=== PATIENT | female | born 2000 | race Caucasian/White ===

== ENCOUNTER 2020-03-09 11:24 | Outpatient (CLI) | payer OTHER | END 2020-03-09 11:25 | disposition home or self-care (01) | LOC: BUREKG 11:24 | PROVIDERS: ATTEND Physician Assistant | DX: R00.0 Tachycardia, unspecified (principal) | CPT/HCPCS: 93005; 93010 ==

== ENCOUNTER 2020-07-13 20:19 | Emergency (ER) | payer OTHER ==
[2020-07-13] MEDS ORDERED: Clindamycin 150 MG CAP ONE (20:46)
== END 2020-07-13 20:49 | disposition home or self-care (01) ==
LOC: BURERS 20:19
DX: L02.416 Cutaneous abscess of left lower limb (principal); F17.210 Nicotine dependence, cigarettes, uncomplicated
CPT/HCPCS: 99283

== ENCOUNTER 2020-12-02 18:33 | Emergency (ER) | payer OTHER ==
[2020-12-02 19:28] LABS: #Basophils 0.1 thou/uL (0.0-0.2); #Eosinphils 0.3 thou/uL (0.0-0.7); #Lymphocytes 3.6 thou/uL (1.20-3.40); #Monocytes 0.7 thou/uL (0.11-0.59); #Neutrophils 4.6 thou/uL (1.40-6.50); %Basophils 0.6 % (0.0-1.0); %Eosinophils 3.2 % (0.0-10.0); %Lymphocytes 39.3 % (28.0-48.0); %Monocytes 7.6 % (0.0-4.0); %Neutrophils 49.3 % (31.0-61.0); Mean Corpuscular HGB CONC 33.8 g/dL (32.0-36.0); Mean Corpuscular Hemoglobin 30.6 pg (25.0-35.0); Mean Corpuscular Volume 90.6 fL (78.0-98.0); Mean Platelet Volume 6.1 fL (7.4-10.4); Platelet Count 298 thou/uL (130-400); RBC Distribution Width 10.4 % (11.5-14.5); Red Blood Cell (RBC) Count 4.89 mill/uL (4.00-5.20); White Blood Cell (WBC) Count 9.2 thou/uL (4.8-10.8)
[2020-12-02 19:44] LABS: ALT (SGPT) 23 U/L (8-55); AST (SGOT) 15 U/L (5-34); Albumin 4.6 g/dL (3.5-5.0); Alkaline Phosphatase 80 U/L (40-100); Anion Gap 15 mmol/L (10-20); BUN (Urea Nitrogen) 14 mg/dL (7.0-18.7); Bilirubin, Total 0.2 mg/dL (0.2-1.2); Calc. Creatinine Clearance 0 mL/min (70-130); Calcium 10.1 mg/dL (7.8-10.44); Carbon Dioxide 27 mmol/L (22-29); Chloride 103 mmol/L (98-107); Globulin 3.1 g/dL (2.4-3.5); Glucose 94 mg/dL (70-105); Potassium 3.9 mmol/L (3.5-5.1); Protein, Total 7.7 g/dL (6.0-8.3); Sodium 141 mmol/L (136-145)
== END 2020-12-02 20:11 | disposition home or self-care (01) ==
LOC: BURERS 18:33
DX: R07.89 Other chest pain (principal); F17.210 Nicotine dependence, cigarettes, uncomplicated
CPT/HCPCS: 36415; 71045; 80053; 84484; 85025; 93005

== ENCOUNTER 2021-01-23 21:53 | Emergency (ER) | payer OTHER ==
[2021-01-23] MEDS ORDERED: HYDROcodone/Acetaminophen 5/325 mg Tablet ONE (22:50)
== END 2021-01-23 22:51 | disposition home or self-care (01) ==
LOC: BURERS 21:53
DX: S90.111A Contusion of right great toe without damage to nail, initial encounter (principal); F17.210 Nicotine dependence, cigarettes, uncomplicated; W20.8XXA Other cause of strike by thrown, projected or falling object, initial encounter

== ENCOUNTER 2021-05-08 19:21 | Emergency (ER) | payer OTHER | END 2021-05-08 19:58 | disposition home or self-care (01) | LOC: BURERS 19:21 | DX: H65.93 Unspecified nonsuppurative otitis media, bilateral (principal); F17.210 Nicotine dependence, cigarettes, uncomplicated | CPT/HCPCS: 99282 ==

== ENCOUNTER 2021-10-24 10:29 | Emergency (ER) | payer OTHER ==
[2021-10-24] MEDS ORDERED: Ibuprofen 800 MG TAB ONE (10:50)
== END 2021-10-24 11:37 | disposition home or self-care (01) ==
LOC: BURERS 10:29
DX: S63.502A Unspecified sprain of left wrist, initial encounter (principal); Z71.6 Tobacco abuse counseling; F17.290 Nicotine dependence, other tobacco product, uncomplicated; F17.210 Nicotine dependence, cigarettes, uncomplicated; X50.0XXA Overexertion from strenuous movement or load, initial encounter
CPT/HCPCS: 99406

== ENCOUNTER 2021-12-16 14:27 | Outpatient (CLI) | payer OTHER | END 2021-12-16 14:28 | disposition home or self-care (01) | LOC: BURRAD 14:27 | PROVIDERS: ATTEND Physician Assistant | DX: M54.41 Lumbago with sciatica, right side (principal); M54.42 Lumbago with sciatica, left side; Q76.49 Other congenital malformations of spine, not associated with scoliosis | CPT/HCPCS: 72100 ==